=== PATIENT | male | born 1950 | race African-American/Black ===

== ENCOUNTER 2023-06-13 04:02 | Inpatient (IN) | payer MEDICARE ==
[~2023-06-13] VITALS: Ht 177.8 cm; Wt 85.2 kg
[2023-06-13] MEDS ORDERED: 0.9% SODIUM CHLORIDE 10 ML SYRINGE IVP PRN (04:15)
[2023-06-13] MEDS ORDERED: ACETAMINOPHEN 500 MG TABLET PO ONE (04:30)
[2023-06-13] MEDS ORDERED: SODIUM CHLORIDE 0.9% 1,800 ML IV ONE (04:30)
[2023-06-13 04:50] LABS: BASOPHILS % (AUTO) 0.3 % (0.0-2.0); EOSINOPHILS % (AUTO) 0 % (1.0-6.0); HEMATOCRIT 38.2 % (41-53); HEMOGLOBIN 12.8 g/dL (13.5-17.5); LYMPHOCYTES # (AUTO) 0.3 K/uL (1.0-4.8); LYMPHOCYTES % (AUTO) 2.4 % (22.0-44.0); MEAN CORPUSCULAR HEMOGLOBIN 32.7 pg (26.0-34.0); MEAN CORPUSCULAR HGB CONC 33.4 G/dL (31.0-37.0); MEAN CORPUSCULAR VOLUME 98 fL (80-100); MONOCYTES % (AUTO) 8.5 % (2.0-9.0); NEUTROPHILS # (AUTO) 10.3 K/uL (1.8-7.7); PLATELET COUNT (AUTO) 127 K/uL (150-450); RED BLOOD CELL COUNT(AUTO) 3.91 MIL/uL (4.50-5.90)
[2023-06-13 04:56] LABS: INR 1.1 (0.9-1.1); PROTHROMBIN TIME 11.2 SEC (9.4-11.6)
[2023-06-13] MEDS ORDERED: PIPERACILLIN/TAZO 3.375 GM/D5W 50 ML IV ONE (05:00)
[2023-06-13 05:03] LABS: NEUTROPHILS % (AUTO) 88.8 % (40.0-70.0)
[2023-06-13 05:21] LABS: ALANINE AMINOTRANSFERASE 11 U/L (12-78); ALBUMIN 2.9 g/dL (3.4-5.0); ALKALINE PHOSPHATASE 67 U/L (46-116); ANION GAP 10 mmol/L (8-16); ASPARTATE AMINOTRANSFERASE 19 U/L (15-37); BILIRUBIN,TOTAL 0.6 mg/dL (0.1-1.0); CALCIUM, TOTAL 9.3 mg/dL (8.8-10.5); CARBON DIOXIDE 32 mmol/L (22-29); CHLORIDE 94 mmol/L (98-107); GLUCOSE,RANDOM 126 mg/dL (70-110); POTASSIUM 3.2 mmol/L (3.5-5.1); SODIUM SERUM 135 mmol/L (136-145); TOTAL PROTEIN, SERUM 7.2 g/dL (6.4-8.2)
[2023-06-13 05:28] LABS: LACTIC ACID 1.9 mmol/L (0.4-2.0)
[2023-06-13 05:35] LABS: COVID AG,FIA SOURCE NASAL SWAB
[2023-06-13 05:38] LABS: CREATININE 5.94 mg/dL (0.60-1.30); GLOMERULAR FILTR. RATE CALC 9 mL/min (>60)
[2023-06-13] MEDS ORDERED: HYDROmorphone HCL 2 MG/ML SYRINGE IVP ONE ×2 (06:15→12:00)
[2023-06-13 16:12] LABS: APPEARANCE,URINE CLEAR (CLEAR); BILIRUBIN,URINE NEGATIVE (NEGATIVE); GLUCOSE, URINE (UA) TRACE mg/dL (NEGATIVE); KETONES,URINE NEGATIVE (NEGATIVE); LEUKOCYTE ESTERASE ,URINE NEGATIVE (NEGATIVE); NITRATE,URINE NEGATIVE (NEGATIVE); OCCULT BLOOD,URINE NEGATIVE (NEGATIVE); PH,URINE 8.5 (5.0-8.0); PROTEIN,URINE >600,SEE CONFIRM mg/dL (NEGATIVE); SPECIFIC GRAVITIY, URINE 1.011 (1.003-1.030); UROBILINOGEN,URINE <=1.0 mg/dL (<=1.0)
[2023-06-13 16:19] LABS: SULFOSALICYLIC ACID,URINE 4+ (Negative)
[2023-06-13 16:41] LABS: BACTERIA,URINE None Seen /HPF (None Seen); RBC,URINE None Seen /HPF (0-2); WBC,URINE None Seen /HPF (0-5)
[2023-06-13] MEDS ORDERED: MAGNESIUM HYDROXIDE SUSPENSION 30 ML UDCUP PO PRN (16:45)
[2023-06-13] MEDS ORDERED: BISACODYL 10 MG RECTAL RECTAL SUPPOSITORY PR PRN (16:45)
[2023-06-13] MEDS ORDERED: ZOLPIDEM TARTRATE 5 MG TABLET PO PRN (16:45)
[2023-06-13] MEDS ORDERED: ONDANSETRON HCL 4 MG/2 ML VIAL IVP PRN (16:45)
[2023-06-13] MEDS ORDERED: IPRATROPIUM BROMIDE 0.5 MG/2.5 ML NEB SOLUTION NEB PRN (16:45)
[2023-06-13] MEDS ORDERED: ALBUTEROL SULFATE 2.5 MG/0.5 ML NEB SOLUTION NEB PRN (16:45)
[2023-06-13 16:49] VITALS: BP 161/102; PULSE 75; RESP 17; TEMP 103.1
[2023-06-13] MEDS: CefTRIAXone 1 GM/DEXTROSE 50 ML IV SCH (17:11)
[2023-06-13] MEDS: ACETAMINOPHEN 325 MG TABLET PO PRN ×2 (17:11→23:41)
[2023-06-13] MEDS: MORPHINE SULFATE 2 MG/ML SYRINGE IVP PRN (17:11)
[2023-06-13] MEDS ORDERED: HydrALAZINE HCL 20 MG/ML VIAL IVP PRN (17:15)
[2023-06-13] MEDS ORDERED: POTASSIUM CHLORIDE 20 MEQ ER TABLET PO ONE (17:15)
[2023-06-13] MEDS ORDERED: SODIUM CHLORIDE 0.9% 250 ML IV ONE (17:41)
[2023-06-13] MEDS: NIFEdipine 30 MG ER TABLET PO SCH (17:45)
[2023-06-13] MEDS ORDERED: VANCOMYCIN 1GM/WATER(PEG/NADA) 200 ML IV ONE (18:00)
[2023-06-13] MEDS ORDERED: VANCOMYCIN HCL 1 GM in DEXTROSE 5%-WATER 250 ML IV PRN (18:00)
[2023-06-13] MEDS ORDERED: VANCOMYCIN HCL 1 GM in DEXTROSE 5%-WATER 250 ML IV ONE (18:00)
[2023-06-13 20:02] VITALS: BP 128/75; PULSE 88; RESP 19; TEMP 102.1
[2023-06-13 23:27] VITALS: BP 139/89; PULSE 103; RESP 17; TEMP 103.2
[2023-06-13] MEDS: HEPARIN SODIUM,PORCINE 5,000 UNITS/ML VIAL SQ SCH (23:41)
[2023-06-14 04:08] VITALS: BP 113/66; PULSE 83; RESP 18; TEMP 99.5
[2023-06-14 07:46] VITALS: BP 107/64; PULSE 85; RESP 18; TEMP 99.7
[2023-06-14] MEDS: HEPARIN SODIUM,PORCINE 5,000 UNITS/ML VIAL SQ SCH ×3 (08:52→23:07)
[2023-06-14] MEDS: PANTOPRAZOLE SODIUM 40 MG DR TABLET PO SCH (08:52)
[2023-06-14] MEDS: HYDROCODONE/ACETAMINOPHEN 5-325 MG TABLET PO PRN (08:52)
[2023-06-14] MEDS: NIFEdipine 30 MG ER TABLET PO SCH (08:52)
[2023-06-14 11:56] LABS: GLUCOMETER DEV NAME(LOC) 5N.1C
[2023-06-14 12:04] VITALS: BP 121/64; PULSE 83; RESP 18; TEMP 98.6
[2023-06-14 13:16] LABS: BASOPHILS % (AUTO) 0.7 % (0.0-2.0); EOSINOPHILS % (AUTO) 0.5 % (1.0-6.0); HEMATOCRIT 38.8 % (41-53); HEMOGLOBIN 12.6 g/dL (13.5-17.5); LYMPHOCYTES # (AUTO) 0.2 K/uL (1.0-4.8); MEAN CORPUSCULAR HEMOGLOBIN 31.9 pg (26.0-34.0); MEAN CORPUSCULAR HGB CONC 32.5 G/dL (31.0-37.0); MEAN CORPUSCULAR VOLUME 98 fL (80-100); MONOCYTES # (AUTO) 1.1 K/uL (0.1-1.0); MONOCYTES % (AUTO) 9.8 % (2.0-9.0); NEUTROPHILS # (AUTO) 9.7 K/uL (1.8-7.7); PLATELET COUNT (AUTO) 111 K/uL (150-450); RED BLOOD CELL COUNT(AUTO) 3.95 MIL/uL (4.50-5.90); RED CELL DISTRIBUTION WIDTH 18.6 % (11.5-14.5)
[2023-06-14 13:20] LABS: CALCIUM, TOTAL 9.5 mg/dL (8.8-10.5); CREATININE 7.81 mg/dL (0.60-1.30); POTASSIUM 3.7 mmol/L (3.5-5.1)
[2023-06-14 13:26] LABS: ALBUMIN 2.4 g/dL (3.4-5.0); BILIRUBIN,TOTAL 0.5 mg/dL (0.1-1.0); TOTAL PROTEIN, SERUM 6.6 g/dL (6.4-8.2)
[2023-06-14] MEDS: PIPERACILLIN SODIUM/TAZOBACTAM 2.25 GM in DEXTROSE 5%-WATER 50 ML IV SCH ×2 (14:42→21:30)
[2023-06-14 15:40] VITALS: BP 119/65; PULSE 84; RESP 18; TEMP 98.1
[2023-06-14] MEDS: CefTRIAXone 1 GM/DEXTROSE 50 ML IV SCH (16:56)
[2023-06-14 20:21] VITALS: BP 123/86; PULSE 89; RESP 20; TEMP 100.3
[2023-06-14] MEDS: ACETAMINOPHEN 325 MG TABLET PO PRN (20:27)
[2023-06-15] VITALS (15 sets, daily range): BP systolic 100–130; BP diastolic 58–76; PULSE 79–98; RESP 18–20; TEMP 98.2–100
[2023-06-15] MEDS: PIPERACILLIN SODIUM/TAZOBACTAM 2.25 GM in DEXTROSE 5%-WATER 50 ML IV SCH (05:39)
[2023-06-15] MEDS: MORPHINE SULFATE 2 MG/ML SYRINGE IVP PRN (06:55)
[2023-06-15] MEDS: HEPARIN SODIUM,PORCINE 5,000 UNITS/ML VIAL SQ SCH ×2 (08:00→16:00)
[2023-06-15] MEDS: PANTOPRAZOLE SODIUM 40 MG DR TABLET PO SCH (09:19)
[2023-06-15] MEDS: HYDROCODONE/ACETAMINOPHEN 5-325 MG TABLET PO PRN (09:19)
[2023-06-15] MEDS: NIFEdipine 30 MG ER TABLET PO SCH (09:19)
[2023-06-15] MEDS ORDERED: VANCOMYCIN 1GM/WATER(PEG/NADA) 200 ML IV ONE (16:00)
[2023-06-15 17:26] LABS: GLUCOMETER DEV NAME(LOC) 5N.1C
[2023-06-16 01:02] VITALS: BP 110/65; PULSE 91; RESP 18; TEMP 98.1
[2023-06-16 03:06] LABS: HEPATITIS C AB (EIA) Non Reactive (Non Reactive)
[2023-06-16] MEDS: HYDROCODONE/ACETAMINOPHEN 5-325 MG TABLET PO PRN ×3 (03:46→22:21)
[2023-06-16 04:00] VITALS: BP 113/64; PULSE 87; RESP 18; TEMP 98.4
[2023-06-16 04:51] LABS: GLUCOMETER DEV NAME(LOC) 5N.1C
[2023-06-16 07:40] VITALS: BP 100/62; PULSE 88; RESP 18; TEMP 98.3
[2023-06-16] MEDS: HEPARIN SODIUM,PORCINE 5,000 UNITS/ML VIAL SQ SCH ×4 (08:00→23:17)
[2023-06-16] MEDS: NIFEdipine 30 MG ER TABLET PO SCH (08:39)
[2023-06-16] MEDS: PANTOPRAZOLE SODIUM 40 MG DR TABLET PO SCH (08:39)
[2023-06-16 11:24] LABS: BASOPHILS % (AUTO) 0.2 % (0.0-2.0); MEAN CORPUSCULAR HEMOGLOBIN 31.4 pg (26.0-34.0); MONOCYTES # (AUTO) 1.3 K/uL (0.1-1.0)
[2023-06-16 11:26] LABS: EOSINOPHILS % (AUTO) 2.8 % (1.0-6.0); HEMATOCRIT 36.8 % (41-53); LYMPHOCYTES # (AUTO) 0.5 K/uL (1.0-4.8); LYMPHOCYTES % (AUTO) 6.3 % (22.0-44.0); MEAN CORPUSCULAR HGB CONC 32.6 G/dL (31.0-37.0); MEAN CORPUSCULAR VOLUME 96 fL (80-100); NEUTROPHILS # (AUTO) 5.7 K/uL (1.8-7.7); NEUTROPHILS % (AUTO) 73.7 % (40.0-70.0); PLATELET COUNT (AUTO) 118 K/uL (150-450); RED BLOOD CELL COUNT(AUTO) 3.81 MIL/uL (4.50-5.90); RED CELL DISTRIBUTION WIDTH 18.4 % (11.5-14.5)
[2023-06-16 11:42] LABS: CALCIUM, TOTAL 8.6 mg/dL (8.8-10.5); CREATININE 7.16 mg/dL (0.60-1.30); POTASSIUM 3.4 mmol/L (3.5-5.1)
[2023-06-16 11:47] VITALS: BP 118/71; PULSE 78; RESP 18; TEMP 98.1
[2023-06-16 11:47] LABS: BILIRUBIN,TOTAL 0.3 mg/dL (0.1-1.0); TOTAL PROTEIN, SERUM 6.3 g/dL (6.4-8.2)
[2023-06-16 15:51] VITALS: BP 122/62; PULSE 64; RESP 18; TEMP 98
[2023-06-16] MEDS: NAFCILLIN SODIUM 2 GM in DEXTROSE 5%-WATER 100 ML IV SCH ×3 (18:21→22:19)
[2023-06-16] MEDS: MORPHINE SULFATE 2 MG/ML SYRINGE IVP PRN (18:22)
[2023-06-16 19:37] VITALS: BP 114/67; PULSE 90; RESP 19; TEMP 99.3
[2023-06-17] VITALS (14 sets, daily range): BP systolic 109–148; BP diastolic 62–99; PULSE 72–93; RESP 17–20; TEMP 97.2–99.3; O2SAT 98
[2023-06-17] MEDS ORDERED: SODIUM CHLORIDE 0.9% 500 ML IV ONE (02:42)
[2023-06-17] MEDS: NAFCILLIN SODIUM 2 GM in DEXTROSE 5%-WATER 100 ML IV SCH ×6 (02:44→22:14)
[2023-06-17 07:23] LABS: BASOPHILS % (AUTO) 1.2 % (0.0-2.0); EOSINOPHILS % (AUTO) 3.5 % (1.0-6.0); HEMATOCRIT 39.5 % (41-53); HEMOGLOBIN 13.1 g/dL (13.5-17.5); LYMPHOCYTES # (AUTO) 0.4 K/uL (1.0-4.8); LYMPHOCYTES % (AUTO) 6.1 % (22.0-44.0); MEAN CORPUSCULAR HEMOGLOBIN 31.9 pg (26.0-34.0); MEAN CORPUSCULAR HGB CONC 33.1 G/dL (31.0-37.0); MEAN CORPUSCULAR VOLUME 96 fL (80-100); MONOCYTES % (AUTO) 13.9 % (2.0-9.0); NEUTROPHILS # (AUTO) 5.5 K/uL (1.8-7.7); NEUTROPHILS % (AUTO) 75.3 % (40.0-70.0); PLATELET COUNT (AUTO) 141 K/uL (150-450); RED CELL DISTRIBUTION WIDTH 18.2 % (11.5-14.5)
[2023-06-17 07:47] LABS: ALBUMIN 2.1 g/dL (3.4-5.0); BILIRUBIN,TOTAL 1.6 mg/dL (0.1-1.0); CALCIUM, TOTAL 8.8 mg/dL (8.8-10.5); CREATININE 7.75 mg/dL (0.60-1.30); POTASSIUM 3.5 mmol/L (3.5-5.1); TOTAL PROTEIN, SERUM 6.5 g/dL (6.4-8.2)
[2023-06-17] MEDS: HEPARIN SODIUM,PORCINE 5,000 UNITS/ML VIAL SQ SCH ×3 (08:00→23:25)
[2023-06-17] MEDS ORDERED: SODIUM CHLORIDE 0.9% 2,000 ML ONE (08:19)
[2023-06-17] MEDS: PANTOPRAZOLE SODIUM 40 MG DR TABLET PO SCH (08:24)
[2023-06-17] MEDS: NIFEdipine 30 MG ER TABLET PO SCH (08:24)
[2023-06-17] MEDS: HYDROCODONE/ACETAMINOPHEN 5-325 MG TABLET PO PRN ×3 (08:24→23:25)
[2023-06-18] VITALS (14 sets, daily range): BP systolic 119–151; BP diastolic 74–98; PULSE 74–90; RESP 18; TEMP 97–99.7
[2023-06-18] MEDS: NAFCILLIN SODIUM 2 GM in DEXTROSE 5%-WATER 100 ML IV SCH ×4 (02:34→15:09)
[2023-06-18 07:17] LABS: BASOPHILS % (AUTO) 0.8 % (0.0-2.0); EOSINOPHILS % (AUTO) 2.7 % (1.0-6.0); HEMOGLOBIN 13.1 g/dL (13.5-17.5); LYMPHOCYTES # (AUTO) 0.9 K/uL (1.0-4.8); LYMPHOCYTES % (AUTO) 14.2 % (22.0-44.0); MEAN CORPUSCULAR HEMOGLOBIN 32.1 pg (26.0-34.0); MEAN CORPUSCULAR HGB CONC 33.5 G/dL (31.0-37.0); MEAN CORPUSCULAR VOLUME 96 fL (80-100); MONOCYTES # (AUTO) 0.7 K/uL (0.1-1.0); MONOCYTES % (AUTO) 11.5 % (2.0-9.0); NEUTROPHILS # (AUTO) 4.3 K/uL (1.8-7.7); NEUTROPHILS % (AUTO) 70.8 % (40.0-70.0); PLATELET COUNT (AUTO) 168 K/uL (150-450); RED BLOOD CELL COUNT(AUTO) 4.07 MIL/uL (4.50-5.90); RED CELL DISTRIBUTION WIDTH 18.7 % (11.5-14.5)
[2023-06-18 07:41] LABS: BILIRUBIN,TOTAL 2.1 mg/dL (0.1-1.0); CALCIUM, TOTAL 8.5 mg/dL (8.8-10.5); CREATININE 6.54 mg/dL (0.60-1.30); POTASSIUM 3.7 mmol/L (3.5-5.1); TOTAL PROTEIN, SERUM 6.4 g/dL (6.4-8.2)
[2023-06-18] MEDS ORDERED: GADOTERATE MEGLUMINE 10 MMOL/20 ML VIAL IVP ONE (08:59)
[2023-06-18] MEDS: HEPARIN SODIUM,PORCINE 5,000 UNITS/ML VIAL SQ SCH ×2 (09:02→15:09)
[2023-06-18] MEDS: HYDROCODONE/ACETAMINOPHEN 5-325 MG TABLET PO PRN ×2 (09:03→21:45)
[2023-06-18] MEDS: NIFEdipine 30 MG ER TABLET PO SCH (09:03)
[2023-06-18] MEDS: PANTOPRAZOLE SODIUM 40 MG DR TABLET PO SCH (09:03)
[2023-06-18] MEDS: MORPHINE SULFATE 2 MG/ML SYRINGE IVP PRN ×2 (11:37→20:40)
[2023-06-18] MEDS ORDERED: SODIUM CHLORIDE 0.9% 1,000 ML ONE (16:12)
[2023-06-18] MEDS: CeFAZolin 1 GM/DEXTROSE 50 ML IV SCH (20:40)
[2023-06-19 00:12] VITALS: BP 101/69; PULSE 86; RESP 18; TEMP 98
[2023-06-19] MEDS: HEPARIN SODIUM,PORCINE 5,000 UNITS/ML VIAL SQ SCH ×3 (00:35→15:44)
[2023-06-19] MEDS: CeFAZolin 1 GM/DEXTROSE 50 ML IV SCH ×2 (01:13→20:19)
[2023-06-19 05:43] VITALS: BP 114/70; PULSE 78; RESP 18; TEMP 98.3
[2023-06-19] MEDS: MORPHINE SULFATE 2 MG/ML SYRINGE IVP PRN (06:35)
[2023-06-19 07:46] VITALS: BP 127/76; PULSE 65; RESP 18; TEMP 98.2
[2023-06-19 07:56] LABS: BASOPHILS % (AUTO) 0.5 % (0.0-2.0); EOSINOPHILS % (AUTO) 1.8 % (1.0-6.0); HEMATOCRIT 37.8 % (41-53); HEMOGLOBIN 12.4 g/dL (13.5-17.5); LYMPHOCYTES % (AUTO) 14.5 % (22.0-44.0); MEAN CORPUSCULAR HEMOGLOBIN 31.4 pg (26.0-34.0); MEAN CORPUSCULAR HGB CONC 32.8 G/dL (31.0-37.0); MEAN CORPUSCULAR VOLUME 96 fL (80-100); MONOCYTES # (AUTO) 0.8 K/uL (0.1-1.0); MONOCYTES % (AUTO) 11.7 % (2.0-9.0); NEUTROPHILS # (AUTO) 4.7 K/uL (1.8-7.7); NEUTROPHILS % (AUTO) 71.5 % (40.0-70.0); PLATELET COUNT (AUTO) 180 K/uL (150-450); RED BLOOD CELL COUNT(AUTO) 3.95 MIL/uL (4.50-5.90); RED CELL DISTRIBUTION WIDTH 18.3 % (11.5-14.5)
[2023-06-19 08:08] LABS: BILIRUBIN,TOTAL 1.1 mg/dL (0.1-1.0); CALCIUM, TOTAL 8.5 mg/dL (8.8-10.5); CREATININE 5.49 mg/dL (0.60-1.30); POTASSIUM 3.5 mmol/L (3.5-5.1); TOTAL PROTEIN, SERUM 6.5 g/dL (6.4-8.2)
[2023-06-19] MEDS: NIFEdipine 30 MG ER TABLET PO SCH (09:25)
[2023-06-19] MEDS: PANTOPRAZOLE SODIUM 40 MG DR TABLET PO SCH (09:25)
[2023-06-19 11:22] VITALS: BP 149/72; PULSE 84; RESP 19; TEMP 98.4
[2023-06-19] MEDS: HYDROCODONE/ACETAMINOPHEN 5-325 MG TABLET PO PRN ×2 (12:04→20:28)
[2023-06-19 13:07] LABS: FREE KAPPA/LAMBDA LT CHN RATIO 1.57 (0.26-1.65)
[2023-06-19] MEDS ORDERED: INDIUM IN-111 OXYQUINOLINE/.5MCL ISOTOPE 1 EA INJ INJ ONE (13:40)
[2023-06-19 16:35] VITALS: BP 136/70; PULSE 79; RESP 19; TEMP 98
[2023-06-19 20:36] VITALS: BP 138/77; PULSE 84; RESP 20; TEMP 98.2
[2023-06-20] VITALS (15 sets, daily range): BP systolic 110–143; BP diastolic 66–97; PULSE 67–80; RESP 18–20; TEMP 97.2–98.9
[2023-06-20] MEDS: HEPARIN SODIUM,PORCINE 5,000 UNITS/ML VIAL SQ SCH ×4 (00:37→23:51)
[2023-06-20] MEDS: HYDROCODONE/ACETAMINOPHEN 5-325 MG TABLET PO PRN ×4 (05:04→20:12)
[2023-06-20 06:59] LABS: BASOPHILS % (AUTO) 0.5 % (0.0-2.0); EOSINOPHILS % (AUTO) 4.5 % (1.0-6.0); HEMOGLOBIN 11.5 g/dL (13.5-17.5); LYMPHOCYTES # (AUTO) 0.7 K/uL (1.0-4.8); LYMPHOCYTES % (AUTO) 9.6 % (22.0-44.0); MEAN CORPUSCULAR HEMOGLOBIN 31.5 pg (26.0-34.0); MEAN CORPUSCULAR HGB CONC 32.9 G/dL (31.0-37.0); MEAN CORPUSCULAR VOLUME 96 fL (80-100); MONOCYTES # (AUTO) 0.6 K/uL (0.1-1.0); MONOCYTES % (AUTO) 8.5 % (2.0-9.0); NEUTROPHILS # (AUTO) 5.6 K/uL (1.8-7.7); NEUTROPHILS % (AUTO) 76.9 % (40.0-70.0); PLATELET COUNT (AUTO) 206 K/uL (150-450); RED BLOOD CELL COUNT(AUTO) 3.66 MIL/uL (4.50-5.90); RED CELL DISTRIBUTION WIDTH 18.1 % (11.5-14.5)
[2023-06-20 07:14] LABS: ALBUMIN 1.9 g/dL (3.4-5.0); CALCIUM, TOTAL 8.2 mg/dL (8.8-10.5); CREATININE 7.04 mg/dL (0.60-1.30); POTASSIUM 3.2 mmol/L (3.5-5.1); TOTAL PROTEIN, SERUM 6.2 g/dL (6.4-8.2)
[2023-06-20] MEDS: PANTOPRAZOLE SODIUM 40 MG DR TABLET PO SCH (08:55)
[2023-06-20] MEDS: NIFEdipine 30 MG ER TABLET PO SCH (08:55)
[2023-06-20] MEDS ORDERED: SODIUM CHLORIDE 0.9% 2,000 ML ONE (10:38)
[2023-06-20] MEDS: CeFAZolin 1 GM/DEXTROSE 50 ML IV SCH (20:12)
[2023-06-21 05:39] VITALS: BP 133/72; PULSE 79; RESP 18; TEMP 99
[2023-06-21] MEDS: HYDROCODONE/ACETAMINOPHEN 5-325 MG TABLET PO PRN ×2 (05:47→13:26)
[2023-06-21 06:12] LABS: BASOPHILS % (AUTO) 0.5 % (0.0-2.0); EOSINOPHILS % (AUTO) 4.2 % (1.0-6.0); HEMATOCRIT 34.3 % (41-53); HEMOGLOBIN 11.5 g/dL (13.5-17.5); LYMPHOCYTES # (AUTO) 1.1 K/uL (1.0-4.8); LYMPHOCYTES % (AUTO) 13.9 % (22.0-44.0); MEAN CORPUSCULAR HEMOGLOBIN 32.3 pg (26.0-34.0); MEAN CORPUSCULAR HGB CONC 33.5 G/dL (31.0-37.0); MEAN CORPUSCULAR VOLUME 96 fL (80-100); MONOCYTES # (AUTO) 0.7 K/uL (0.1-1.0); MONOCYTES % (AUTO) 9.3 % (2.0-9.0); NEUTROPHILS # (AUTO) 5.5 K/uL (1.8-7.7); NEUTROPHILS % (AUTO) 72.1 % (40.0-70.0); PLATELET COUNT (AUTO) 221 K/uL (150-450); RED BLOOD CELL COUNT(AUTO) 3.56 MIL/uL (4.50-5.90); RED CELL DISTRIBUTION WIDTH 18.4 % (11.5-14.5)
[2023-06-21 06:37] LABS: CREATININE 5.82 mg/dL (0.60-1.30); POTASSIUM 4.4 mmol/L (3.5-5.1)
[2023-06-21 06:38] LABS: BILIRUBIN,TOTAL 0.9 mg/dL (0.1-1.0); CALCIUM, TOTAL 8.3 mg/dL (8.8-10.5); TOTAL PROTEIN, SERUM 6.4 g/dL (6.4-8.2)
[2023-06-21 08:36] VITALS: BP 135/82; PULSE 85; RESP 20; TEMP 98.1
[2023-06-21] MEDS: PANTOPRAZOLE SODIUM 40 MG DR TABLET PO SCH (08:50)
[2023-06-21] MEDS: NIFEdipine 30 MG ER TABLET PO SCH (08:50)
[2023-06-21] MEDS: HEPARIN SODIUM,PORCINE 5,000 UNITS/ML VIAL SQ SCH ×3 (08:51→23:03)
[2023-06-21 11:08] VITALS: BP 135/80; PULSE 76; RESP 19; TEMP 98.2
[2023-06-21 15:42] VITALS: BP 129/71; PULSE 80; RESP 19; TEMP 98
[2023-06-21] MEDS: SEVELAMER CARBONATE 800 MG TABLET PO SCH (17:56)
[2023-06-21] MEDS: MORPHINE SULFATE 2 MG/ML SYRINGE IVP PRN (18:18)
[2023-06-21] MEDS: CeFAZolin 1 GM/DEXTROSE 50 ML IV SCH (19:54)
[2023-06-21 20:14] VITALS: BP 123/68; PULSE 85; RESP 19; TEMP 98.2
[2023-06-22] VITALS (16 sets, daily range): BP systolic 113–137; BP diastolic 63–81; PULSE 75–92; RESP 18–19; TEMP 97.8–99
[2023-06-22] MEDS: HYDROCODONE/ACETAMINOPHEN 5-325 MG TABLET PO PRN (00:29)
[2023-06-22] MEDS: MORPHINE SULFATE 2 MG/ML SYRINGE IVP PRN ×3 (06:43→20:10)
[2023-06-22 07:26] LABS: BASOPHILS % (AUTO) 0.3 % (0.0-2.0); EOSINOPHILS % (AUTO) 4.3 % (1.0-6.0); HEMATOCRIT 33.2 % (41-53); LYMPHOCYTES # (AUTO) 0.8 K/uL (1.0-4.8); LYMPHOCYTES % (AUTO) 10.8 % (22.0-44.0); MEAN CORPUSCULAR HEMOGLOBIN 31.8 pg (26.0-34.0); MEAN CORPUSCULAR VOLUME 96 fL (80-100); MONOCYTES # (AUTO) 0.8 K/uL (0.1-1.0); MONOCYTES % (AUTO) 10.7 % (2.0-9.0); NEUTROPHILS # (AUTO) 5.5 K/uL (1.8-7.7); NEUTROPHILS % (AUTO) 73.9 % (40.0-70.0); PLATELET COUNT (AUTO) 248 K/uL (150-450); RED BLOOD CELL COUNT(AUTO) 3.45 MIL/uL (4.50-5.90); RED CELL DISTRIBUTION WIDTH 18.4 % (11.5-14.5)
[2023-06-22 07:48] LABS: ALBUMIN 1.8 g/dL (3.4-5.0); ALKALINE PHOSPHATASE 59 U/L (46-116); ANION GAP 8 mmol/L (8-16); ASPARTATE AMINOTRANSFERASE 28 U/L (15-37); BILIRUBIN,TOTAL 0.9 mg/dL (0.1-1.0); CALCIUM, TOTAL 8.3 mg/dL (8.8-10.5); CARBON DIOXIDE 29 mmol/L (22-29); CHLORIDE 98 mmol/L (98-107); CREATININE 7.74 mg/dL (0.60-1.30); GLOMERULAR FILTR. RATE CALC 8 mL/min (>60); GLUCOSE,RANDOM 87 mg/dL (70-110); POTASSIUM 3.8 mmol/L (3.5-5.1); SODIUM SERUM 135 mmol/L (136-145); TOTAL PROTEIN, SERUM 6.1 g/dL (6.4-8.2)
[2023-06-22] MEDS: PANTOPRAZOLE SODIUM 40 MG DR TABLET PO SCH (08:03)
[2023-06-22] MEDS: NIFEdipine 30 MG ER TABLET PO SCH (08:04)
[2023-06-22] MEDS: HEPARIN SODIUM,PORCINE 5,000 UNITS/ML VIAL SQ SCH ×3 (08:04→23:17)
[2023-06-22] MEDS: SEVELAMER CARBONATE 800 MG TABLET PO SCH ×3 (08:04→18:00)
[2023-06-22 08:28] LABS: ALANINE AMINOTRANSFERASE < 6 U/L (12-78)
[2023-06-22] MEDS ORDERED: SODIUM CHLORIDE 0.9% 1,000 ML ONE (14:34)
[2023-06-22] MEDS: CeFAZolin 2 GM/DEXTROSE 50 ML IV SCH (20:15)
[2023-06-22] MEDS ORDERED: SODIUM CHLORIDE 0.9% 500 ML IV ONE (20:18)
[2023-06-23] MEDS: MORPHINE SULFATE 2 MG/ML SYRINGE IVP PRN ×3 (00:16→13:47)
[2023-06-23 05:00] VITALS: BP 129/71; PULSE 84; RESP 24; TEMP 98.7
[2023-06-23 06:52] LABS: BASOPHILS % (AUTO) 0.7 % (0.0-2.0); EOSINOPHILS % (AUTO) 3.1 % (1.0-6.0); HEMOGLOBIN 11.9 g/dL (13.5-17.5); LYMPHOCYTES # (AUTO) 0.7 K/uL (1.0-4.8); LYMPHOCYTES % (AUTO) 9.7 % (22.0-44.0); MEAN CORPUSCULAR HEMOGLOBIN 32.3 pg (26.0-34.0); MEAN CORPUSCULAR VOLUME 98 fL (80-100); MONOCYTES # (AUTO) 0.8 K/uL (0.1-1.0); MONOCYTES % (AUTO) 11.2 % (2.0-9.0); NEUTROPHILS # (AUTO) 5.2 K/uL (1.8-7.7); NEUTROPHILS % (AUTO) 75.3 % (40.0-70.0); PLATELET COUNT (AUTO) 260 K/uL (150-450); RED BLOOD CELL COUNT(AUTO) 3.68 MIL/uL (4.50-5.90); RED CELL DISTRIBUTION WIDTH 18.7 % (11.5-14.5)
[2023-06-23 07:34] VITALS: BP 135/74; PULSE 80; RESP 18; TEMP 98.1
[2023-06-23 07:41] LABS: ALANINE AMINOTRANSFERASE < 6 U/L (12-78); ALBUMIN 2.1 g/dL (3.4-5.0); ALKALINE PHOSPHATASE 70 U/L (46-116); ANION GAP 10 mmol/L (8-16); ASPARTATE AMINOTRANSFERASE 28 U/L (15-37); CALCIUM, TOTAL 8.9 mg/dL (8.8-10.5); CARBON DIOXIDE 30 mmol/L (22-29); CHLORIDE 97 mmol/L (98-107); CREATININE 5.67 mg/dL (0.60-1.30); GLOMERULAR FILTR. RATE CALC 12 mL/min (>60); GLUCOSE,RANDOM 85 mg/dL (70-110); POTASSIUM 4.8 mmol/L (3.5-5.1); SODIUM SERUM 137 mmol/L (136-145); TOTAL PROTEIN, SERUM 7.2 g/dL (6.4-8.2)
[2023-06-23] MEDS: PANTOPRAZOLE SODIUM 40 MG DR TABLET PO SCH (08:33)
[2023-06-23] MEDS: HEPARIN SODIUM,PORCINE 5,000 UNITS/ML VIAL SQ SCH ×2 (08:33→16:29)
[2023-06-23] MEDS: SEVELAMER CARBONATE 800 MG TABLET PO SCH ×3 (08:33→18:06)
[2023-06-23] MEDS: NIFEdipine 30 MG ER TABLET PO SCH (08:33)
[2023-06-23 11:13] VITALS: BP 134/75; PULSE 78; RESP 18; TEMP 98
[2023-06-23 15:16] VITALS: BP 131/76; PULSE 81; RESP 18; TEMP 98.9
[2023-06-23 20:26] VITALS: BP 132/74; PULSE 88; RESP 18; TEMP 100
[2023-06-23 21:10] VITALS: BP 127/75; PULSE 91; RESP 20; TEMP 99.8
[2023-06-23] MEDS ORDERED: HYDROCODONE/ACETAMINOPHEN 5-325 MG TABLET PO ONE (22:00)
[2023-06-24] VITALS (7 sets, daily range): BP systolic 116–170; BP diastolic 68–142; PULSE 40–89; RESP 18–20; TEMP 97.8–100.7
[2023-06-24] MEDS: SEVELAMER CARBONATE 800 MG TABLET PO SCH (08:23)
[2023-06-24] MEDS: NIFEdipine 30 MG ER TABLET PO SCH (08:23)
[2023-06-24] MEDS: PANTOPRAZOLE SODIUM 40 MG DR TABLET PO SCH (08:23)
[2023-06-24] MEDS: ACETAMINOPHEN 325 MG TABLET PO PRN (08:23)
[2023-06-24] MEDS: CeFAZolin 2 GM/DEXTROSE 50 ML IV SCH (09:00)
== END 2023-06-24 12:15 | disposition home or self-care (01) | DRG 871 ==
LOC: EMS 04:02 → 5S 16:12 → 6S 06-23 21:10
PROVIDERS: ADMIT Hospitalist; ATTEND Hospitalist
PROC: 5A1D70Z Performance of Urinary Filtration, Intermittent, Less than 6 Hours Per Day (ICD-10-PCS; principal; 2023-06-16)
PROC: 5A1D70Z Performance of Urinary Filtration, Intermittent, Less than 6 Hours Per Day (ICD-10-PCS; 2023-06-18)
PROC: 5A1D70Z Performance of Urinary Filtration, Intermittent, Less than 6 Hours Per Day (ICD-10-PCS; 2023-06-19)
PROC: 5A1D70Z Performance of Urinary Filtration, Intermittent, Less than 6 Hours Per Day (ICD-10-PCS; 2023-06-21)
DX: A41.01 Sepsis due to Methicillin susceptible Staphylococcus aureus (principal); N18.6 End stage renal disease; N25.81 Secondary hyperparathyroidism of renal origin; I12.0 Hypertensive chronic kidney disease with stage 5 chronic kidney disease or end stage renal disease; E87.6 Hypokalemia; D63.1 Anemia in chronic kidney disease; M10.9 Gout, unspecified; M54.50 Low back pain, unspecified; N25.0 Renal osteodystrophy; B95.61 Methicillin susceptible Staphylococcus aureus infection as the cause of diseases classified elsewhere; M48.061 Spinal stenosis, lumbar region without neurogenic claudication; Z99.2 Dependence on renal dialysis; Z79.899 Other long term (current) drug therapy
CPT/HCPCS: 71045; 71250; 72131; 72147; 72148; 72192; 74150; 78806; 80053; 80202; 81001; 81002; 81003; 82784; 82962; 83605; 83883; 84145; 84155; 84165; 85025; 85610; 86334; 86803; 87040; 87077; 87081; 87205; 87340; 90935; 93005; 93306; 97116; 97162; 97530; 99285; A9547; J0690; J0696; J1170; J1644; J2270; J2543; J3370; J3490; J7030; J7040; J7050; J7060; Q9967; 36415-L1; 36415-TC